=== PATIENT | male | born 1995 | race Caucasian/White ===

== ENCOUNTER 2020-08-11 16:33 | Emergency (ER) | payer OTHER ==
[2020-08-11 16:41] VITALS: BP 137/87; PULSE 109; TEMP 98; BMI 22.8
[2020-08-11] MEDS ORDERED: DEXAMETHASONE SOD PHOSPHATE 10 MG/1 ML VIAL IM ONE (17:00)
[2020-08-11] MEDS ORDERED: FAMOTIDINE 20 MG TABLET PO ONE (17:00)
[2020-08-11] MEDS ORDERED: FAMOTIDINE 20 MG TABLET ONE (17:05)
[2020-08-11] MEDS ORDERED: DEXAMETHASONE SOD PHOSPHATE 10 MG/1 ML VIAL ONE (17:06)
== END 2020-08-11 18:23 | disposition home or self-care (01) ==
LOC: JERFT 16:33
PROC: 3E023NZ Introduction of Analgesics, Hypnotics, Sedatives into Muscle, Percutaneous Approach (ICD-10-PCS; principal; 2020-08-11)
DX: L27.2 Dermatitis due to ingested food (principal); T78.3XXA Angioneurotic edema, initial encounter
CPT/HCPCS: 99284-25; J1100

== ENCOUNTER 2022-08-25 19:24 | Emergency (ER) | payer BC, OTHER ==
[2022-08-25 19:35] VITALS: BP 125/95; PULSE 109; RESP 18; TEMP 98; BMI 28.4
[2022-08-25] MEDS ORDERED: AMOXICILLIN 500 MG CAPSULE (FP) PO ONE (20:30)
[2022-08-25] MEDS ORDERED: IBUPROFEN 600 MG TABLET (FP) PO ONE (20:31)
[2022-08-25] MEDS ORDERED: AMOX TR/POT CLAV 500MG/125MG TABLETS (FP) ONE (20:32)
== END 2022-08-25 20:41 | disposition home or self-care (01) ==
LOC: JERFT 19:24 → JER 19:24 → JERFT 20:41
DX: H66.003 Acute suppurative otitis media without spontaneous rupture of ear drum, bilateral (principal); J02.9 Acute pharyngitis, unspecified; H61.23 Impacted cerumen, bilateral
CPT/HCPCS: 99283-25

== ENCOUNTER 2023-10-03 14:38 | Emergency (ER) | payer OTHER ==
[2023-10-03 14:50] VITALS: BP 137/83; PULSE 82; RESP 18; TEMP 98.4; BMI 28.8
[2023-10-03] MEDS ORDERED: LORATADINE 10 MG TABLET ONE (15:18)
[2023-10-03] MEDS ORDERED: FAMOTIDINE 10 MG TABLET ONE (15:18)
[2023-10-03] MEDS ORDERED: MAG HYDROX/AL HYDROX/SIMETH 30 ML UNIT-DOSE CUP ONE (15:19)
[2023-10-03] MEDS: MAG HYDROX/AL HYDROX/SIMETH -MYLANTA- ORAL SUSPENSION PO ONE (15:26)
[2023-10-03] MEDS: LORATADINE 10 MG TABLET PO ONE (15:26)
[2023-10-03] MEDS: FAMOTIDINE 10 MG TABLET PO ONE (15:26)
== END 2023-10-03 16:59 | disposition home or self-care (01) ==
LOC: JER 14:38 → JERFT 14:38
DX: R09.A2 Foreign body sensation, throat (principal); R05.9 Cough, unspecified
CPT/HCPCS: 87651; 99283-25

== ENCOUNTER 2024-01-11 12:35 | Emergency (ER) | payer OTHER ==
[2024-01-11 12:42] VITALS: RESP 18; BMI 28.6
[2024-01-11] MEDS ORDERED: MAG HYDROX/AL HYDROX/SIMETH 30 ML UNIT-DOSE CUP ONE (13:31)
[2024-01-11] MEDS ORDERED: FAMOTIDINE 20 MG TABLET ONE (13:31)
[2024-01-11] MEDS ORDERED: SUCRALFATE 1 GM TABLET (FP) ONE (13:32)
[2024-01-11] MEDS: MAG HYDROX/AL HYDROX/SIMETH -MYLANTA- ORAL SUSPENSION PO ONE (13:36)
[2024-01-11] MEDS: FAMOTIDINE 20 MG TABLET PO ONE (13:37)
[2024-01-11] MEDS: SUCRALFATE 1 GM/10 ML UNIT DOSE CUPS PO ONE (13:37)
[2024-01-11 14:36] LABS: BASO % 0.5 % (0-2.0); EOS % 1.1 % (0-4.5); HEMATOCRIT 44.4 % (35.4-49); HEMOGLOBIN 15.2 GM/dL (11.7-16.9); LYMPH % 36.3 % (8-40); MCH 27.5 pg (25.7-33.7); MCHC 34.3 g/dl (32.0-35.9); MEAN CELL VOLUME 80.3 fl (80-96); MEAN PLT VOLUME 10.8 fl (7.5-11.1); MONO % 7.5 % (3.8-10.2); NEUT % 54.6 % (42.8-82.8); PLATELET COUNT 123 10^3/uL (134-434); RBC 5.53 M/mm3 (4.00-5.60); RDW 13.4 % (11.9-15.9); WHITE BLOOD COUNT 5.2 K/mm3 (4.0-10.0)
[2024-01-11 15:06] LABS: POTASSIUM 4.2 mmol/L (3.5-5.1)
[2024-01-11 15:08] LABS: ALBUMIN 4.2 g/dl (3.4-5.0); BLOOD UREA NITROGEN 10.1 mg/dL (7-18); CALCIUM 9.5 mg/dL (8.5-10.1)
[2024-01-11 15:12] LABS: CREATININE 0.8 mg/dL (0.55-1.3)
[2024-01-11 15:13] LABS: BILIRUBIN,TOTAL 0.9 mg/dL (0.2-1); TOT PROT 7.4 g/dl (6.4-8.2)
[2024-01-11 15:20] LABS: PH,URINE 5.5 (5.0-8.0); URINE APPEARANCE CLEAR; URINE BILIRUBIN NEGATIVE (NEGATIVE); URINE COLOR YELLOW; URINE GLUCOSE (UA) NEGATIVE (NEGATIVE); URINE KETONE TRACE (NEGATIVE); URINE LEUK ESTERASE NEGATIVE (NEGATIVE); URINE NITRITE NEGATIVE (NEGATIVE); URINE PROTEIN NEGATIVE (NEGATIVE)
[2024-01-11 16:00] VITALS: BP 122/81; PULSE 87; TEMP 98.3
== END 2024-01-11 16:01 | disposition home or self-care (01) ==
LOC: JER 12:35
DX: K21.00 Gastro-esophageal reflux disease with esophagitis, without bleeding (principal); J02.9 Acute pharyngitis, unspecified
CPT/HCPCS: 36415; 80053; 81003; 83690; 85025; 87086; 93005; 93010; 99284-25

== ENCOUNTER 2024-08-25 15:46 | Emergency (ER) | payer OTHER ==
[2024-08-25 15:53] VITALS: BP 143/78; PULSE 103; RESP 18; TEMP 98.3; BMI 26.2
[2024-08-25] MEDS ORDERED: MAG HYDROX/AL HYDROX/SIMETH 30 ML UNIT-DOSE CUP ONE (16:33)
[2024-08-25] MEDS: MAG HYDROX/AL HYDROX/SIMETH 30 ML UNIT-DOSE CUP PO ONE (16:42)
== END 2024-08-25 17:04 | disposition home or self-care (01) ==
LOC: JER 15:46
DX: K21.00 Gastro-esophageal reflux disease with esophagitis, without bleeding (principal)
CPT/HCPCS: 99282-25